=== PATIENT | male | born 1935 | race Caucasian/White ===

== ENCOUNTER 2020-01-08 13:48 | Inpatient (IN) | payer MEDICARE ==
[2020-01-08] MEDS ORDERED: Acetaminophen 500 MG TAB ONE ×2 (13:58)
[2020-01-08] MEDS ORDERED: Acetaminophen 650 MG Suppository ONE (14:16)
[2020-01-08 14:43] LABS: #Lymphocytes 0.5 thou/uL (1.20-3.40); #Monocytes 0.6 thou/uL (0.11-0.59); %Basophils 0.2 % (0.0-1.0); %Eosinophils 0.1 % (0.0-10.0); %Lymphocytes 4.1 % (21.0-51.0); %Monocytes 4.5 % (0.0-10.0); %Neutrophils 91.1 % (42.0-75.0); Hemoglobin 14.2 g/dL (14.0-18.0); Mean Corpuscular HGB CONC 33.2 g/dL (32.0-36.0); Mean Corpuscular Volume 90.6 fL (78.0-98.0); Mean Platelet Volume 7.9 fL (7.4-10.4); Platelet Count 272 thou/uL (130-400); RBC Distribution Width 12.6 % (11.5-14.5); Red Blood Cell (RBC) Count 4.72 mill/uL (4.70-6.10); White Blood Cell (WBC) Count 12.1 thou/uL (4.8-10.8)
[2020-01-08] MEDS ORDERED: cefTRIAXone\\ROCEPHIN 2 GM VIAL ONE (14:59)
[2020-01-08] MEDS ORDERED: Azithromycin 500 MG VIAL ONE (15:00)
[2020-01-08 15:05] LABS: ALT (SGPT) 11 U/L (8-55); AST (SGOT) 36 U/L (5-34); Albumin 3.8 g/dL (3.4-4.8); Alkaline Phosphatase 77 U/L (40-110); Anion Gap 18 mmol/L (10-20); BUN (Urea Nitrogen) 33 mg/dL (8.4-25.7); Bilirubin, Total 0.6 mg/dL (0.2-1.2); CK (CPK) 154 U/L (30-200); Calc. Creatinine Clearance 0 mL/min (70-130); Calcium 8.5 mg/dL (7.8-10.44); Carbon Dioxide 19 mmol/L (23-31); Chloride 100 mmol/L (98-107); Estimated GFR-MDRD 43; Globulin 2.8 g/dL (2.4-3.5); Glucose 86 mg/dL (83-110); Protein, Total 6.6 g/dL (5.8-8.1); Sodium 132 mmol/L (136-145)
--- NOTE | 2020-01-08 15:20 | RAD ---
PORTABLE CHEST: Date: 01/08/2020 INDICATION: Cough. COVID-positive. FINDINGS: Bilateral hazy lower lobe infiltrates are seen consistent with COVID pneumonia. No evidence of vascul ar congestion. Heart and mediastinum unremarkable. Postop sternotomy change. IMPRESSION: Hazy bilateral lower lung infiltrates. POS: OFF
[2020-01-08 15:30] LABS: CKMB 1.6 ng/mL (0-6.6)
[2020-01-08] MEDS ORDERED: Dexamethasone 4 mg/ml Vial ONE ×2 (15:46→15:48)
--- NOTE | 2020-01-08 16:02 | PDOC.FPRHP ---
- History of Present Illness Chief Complaint: fever History of Present Illness: 84-year-old male patient presents ER with complaint of shortness of breath, cough f,ever, body aches, chills for the past 2 weeks, with AMS for the past few days. The patient has a known diagnosis of COVID-19, diagnosed Dec 27, and was recently also diagnosed with pneumonia outpatient 3 days ago and started on azithromycin. The patient has been progressively worsening over the past few days. Patient has had 2 bouts of diarrhea, and his appetite has been decreased. He has not had any vomiting, diarrhea, chest pain, or abdominal pain. History was provided by patients daughter and mPOA. ED Course: IVF, tylenol, Rocephin/Azithromycin, decadron and aspirin given in ED - Allergies/Adverse Reactions Allergies Allergy/AdvReac Type Severity Reaction Status Date / Time codeine Allergy Verified 01/08/20 20:03 morphine Allergy Verified 01/08/20 23:13 Penicillins Allergy Verified 01/08/20 20:03 pregabalin [From Lyrica] Allergy Verified 01/08/20 23:12 Sulfa (Sulfonamide Allergy Verified 01/08/20 23:13 Antibiotics) - Home Medications Medication Instructions Recorded Confirmed Type Amlodipine [Norvasc] 2.5 mg PO HS 01/08/20 01/08/20 History Apixaban [Eliquis] 2.5 mg PO BID 01/08/20 01/08/20 History Ascorbic Acid [Vitamin C] 1,000 mg PO DAILY 01/08/20 01/08/20 History Atorvastatin Calcium 10 mg PO HS 01/08/20 01/08/20 History Benzonatate 200 mg PO TID 01/08/20 01/08/20 History Cholecalciferol (Vitamin D3) 2,000 unit PO DAILY 01/08/20 01/08/20 History [Vitamin D3] Cyanocobalamin/Folic Acid [Vitamin 2 tablet PO DAILY 01/08/20 01/08/20 History B12/Folic Acid] Famotidine [Pepcid] 40 mg PO BID 01/08/20 01/08/20 History Finasteride 5 mg PO HS 01/08/20 01/08/20 History Fluticasone/Salmeterol [Advair 1 inh IH BID 01/08/20 01/08/20 History Diskus 250/50] Loratadine/Pseudoephedrine 1 tab PO DAILY 01/08/20 01/08/20 History [Claritin-D 24 Hour] Tamsulosin HCl 0.4 mg PO DAILY 01/08/20 01/08/20 History Ubidecarenone/Vit E Acet [Co Q-10 1 each PO DAILY 01/08/20 01/08/20 History 100 mg Softgel] Vitamin E 400 unit PO DAILY 01/08/20 01/08/20 History Zinc 50 mg PO DAILY 01/08/20 01/08/20 History - History PMHx: Afib, Stroke (Dx earlier this year), HTN, CAD PSHx: L rotator cuff, L Knee, Double hernia, cataract surgery b/l, Quintuple Bypass Surgery, 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 denies: weight/appetite/sleep changes Eyes: denies: eye pain, vision changes ENT: denies: nasal congestion, rhinorrhea Respiratory: reports: cough, shortness of breath. denies: congestion Cardiovascular: denies: chest pain, palpitation, edema Gastrointestinal: denies: nausea, vomiting, diarrhea Genitourinary: denies: incontinence, dysuria Skin: denies: rashes, lesions Musculoskeletal: reports: arthritis/arthralgias. denies: stiffness Neurological: denies: numbness, seizure Psychological: denies: anxiety, depression - Vital signs Temp 102.9, BP: 125/58, Pulse: 84, Resp: 19, O2 sat: 96 on RA with desat in high 80s when coughing - Physical Exam Constitutional: NAD HEENT: normocephalic and atraumatic, PERRLA, other (dry mucous membranes) Neck: supple, FROM Heart: no murmurs/rubs/gallops, no edema -Heart: irregularly irregular -Lungs: diffuse crackles Musculoskeletal: normal structure, normal tone Neurological: no focal deficit, normal sensation Skin: no rash/lesions, good turgor Heme/Lymphatic: no unusual bruising or bleeding, no purpura -Psychiatric: AxO x 1-2, to person, and year; baseline is AxO x 3 per daughter FMR H&P: Results - Labs Result Diagrams: 01/09/20 04:58 01/09/20 04:58 Lab results: WBC 12.1 thou/uL (4.8-10.8) H 01/08/20 14:31 Hgb 14.2 g/dL (14.0-18.0) 01/08/20 14:31 Hct 42.8 % (42.0-52.0) 01/08/20 14:31 MCV 90.6 fL (78.0-98.0) 01/08/20 14:31 Plt Count 272 thou/uL (130-400) 01/08/20 14:31 Neutrophils % 91.1 % (42.0-75.0) H 01/08/20 14:31 Sodium 132 mmol/L (136-145) L 01/08/20 14:31 Potassium 5.0 mmol/L (3.5-5.1) 01/08/20 14:31 Chloride 100 mmol/L (98-107) 01/08/20 14:31 Carbon Dioxide 19 mmol/L (23-31) L 01/08/20 14:31 BUN 33 mg/dL (8.4-25.7) H 01/08/20 14:31 Creatinine 1.55 mg/dL (0.7-1.3) H 01/08/20 14:31 Glucose 86 mg/dL (83-110) 01/08/20 14:31 Lactic Acid 1.7 mmol/L (0.5-2.2) 01/08/20 14:31 Calcium 8.5 mg/dL (7.8-10.44) 01/08/20 14:31 Total Bilirubin 0.6 mg/dL (0.2-1.2) 01/08/20 14:31 AST 36 U/L (5-34) H 01/08/20 14:31 ALT 11 U/L (8-55) 01/08/20 14:31 Alkaline Phosphatase 77 U/L (40-110) 01/08/20 14:31 Creatine Kinase 154 U/L (30-200) 01/08/20 14:31 CK-MB (CK-2) 1.6 ng/mL (0-6.6) 01/08/20 14:31 Serum Total Protein 6.6 g/dL (5.8-8.1) 01/08/20 14:31 Albumin 3.8 g/dL (3.4-4.8) 01/08/20 14:31 - Radiology Interpretation Chest x-ray Status: report reviewed by me (CXR: Bilateral lower lobe infiltrates consistent with covid PNA) FMR H&P: A/P - Plan Acute Hypoxic Respiratory Failure 2/2 Covid PNA Dx Covid December 27 per daughter CXR: CXR: bilateral hazy lower lobe infiltrates are seen consistent with covid pneumonia Currently 97 on RA, however with coughing drops to high 80s - Will start on 2L O2 NC due to suspected silent hypoxemia - Routine Covid labs - does not qualify for remdesivir - convalescent plasma ordered - continue decadron - procal ordered, will hold Abx pending results, s/p Rocephin/Azithromycinin ED- unlikely superimposed bacterial infection - continuous O2 monitoring NSTEMI, suspected type II Ekg with RBBB, no ST changes - will trend troponins - tele monitoring SINDI, suspected, likely 2/2 dehydration Cr. 1.55 - unknown baseline - will give 1L @ 150ml/hr overnight, for 1 bag - recheck in am HTN - resume home medications BPH - continue home medications Hx Afib NSR on EKG - resume home eliquis Hx Stroke - as above Hx CAD s/p 5 vessel bypass in 2013 - resume atorvastatin Code status: DNI-DNR per daughter (mPOA) and PCP: OOT Dispo: admit tele obs FMR H&P: Upper Level - Plan Date/Time: 01/08/20 1600 ISebastien DO, have evaluated this patient and agree with findings/plan as outlined by regulatory affairs internship resident. Pertinent changes/additions are listed here. 84 yo M w pmhx sig for CAD presents with AMS for 2days, cough/fever for 2 weeks dx with covid on 12/27, has had cough and fever since then, AOx2 on my exam which is different from his baseline of x4. Daughter contacted for further information. she reports for the past few days he has been coughing and more altered. no reported SOB. In the ED he tested + for covid, wbc elevation, trop indeterminate, Cr elevated, cxr sig for LL patchy infiltrates b/l, ekg with R BBB, no ST changes. dex, rocephin, azithro and 1L NS, asa given. VSS, apparently drops O2% into hi 80s when coughing. on exam diffuse crackles, irregularly irregular rhythm, abd nttp, no TOSHIA, dry appearing. AHRF 2/2 COVID pna >10days of illness, will cont dex, home elquis, give convalescent plasma, routine covid labs, supplemental O2 as silent hypoxemia could be contributing to pt AMS. does not qualify for remdesivir. unlikely superimposed bacterial infection, will hold off on abx for now. NSTEMI type II, EKG changes likely chronic, will trend trop and repeat EKG for chest pain. SINDI likely 2/2 hypovolemia, will IVF rescus and monitor. daughter contacted and made aware of patients status, she reports he wishes to be DNR-DNI. admit to tele inpt for ELOS>48hrs. Addendum - Attending - Attending Attestation Date/Time: 01/08/20 [id number] I personally evaluated the patient and discussed the management with Dr. Guerrero I agree with the History, Examination, Assessment and Plan documented above with any addition or exceptions noted below- 84-year-old male patient presents ER with complaint of shortness of breath, cough f,ever, body aches, chills for the past 2 weeks, with AMS for the past few days. The patient has a known diagnosis of COVID-19, diagnosed Dec 27, and was recently also diagnosed with pneumonia outpatient 3 days ago and started on azithromycin. The patient has been progressively worsening over the past few days. Patient has had 2 bouts of diarrhea, and his appetite has been decreased. He has not had any vomiting, diarrhea, chest pain, or abdominal pain. T102.9 VSS Exam repeated by me and agree with resident's findings. A/P: 1) AMS- multifactorial including COVID pneumonia, UTI and dehydration- improved after fluid bolus. 2) COVID pneumonia- will check baseline labs; outside of window for remdesivir but can consider co nvalescent plasma. 3) UTI- received abx in ER; blood and urine cultures collected. Continue abx.
[2020-01-08] MEDS ORDERED: Acetaminophen 650 MG Suppository PR PRN (16:45)
[2020-01-08] MEDS ORDERED: Lactated Ringer's 1,000 ML IV SCH (17:00)
[2020-01-08 17:58] LABS: INR-International Normal Ratio 1.5; PTT 48.1 sec (22.9-36.1); Prothrombin Time 18.3 sec (12.0-14.7)
[2020-01-08 18:12] LABS: Troponin I 0.058 ng/mL (< 0.028)
[2020-01-08 18:24] VITALS: BMI 22.1
[2020-01-08] MEDS: Dexamethasone 4 mg/ml Vial SLOW IVP SCH (20:42)
[2020-01-08] MEDS: Benzonatate 100 MG CAP PO SCH (20:42)
[2020-01-08] MEDS: Apixaban 2.5 MG TAB PO SCH (20:42)
[2020-01-08 20:56] LABS: Bacteria/HPF 4+ HPF (None Seen); Bilirubin Negative (Negative); Blood, Urine Negative (Negative); Clarity Turbid (Clear); Glucose, Urine (Dipstick) Normal (Negative); Ketone, Urine Trace mg/dL (Negative); Leukocyte 25 Leu/uL (Negative); Nitrite 2+ (Negative); Protein, Urine (Dipstick) 30 mg/dL (Neg-Trace); RBC/HPF 0-3 HPF (0-3); Specific Gravity, Urine 1.021 (1.002-1.036); Squamous Epithelial 0-3 HPF (0-3); Urobilinogen Normal mg/dL (Less than 2)
[2020-01-08 21:18] LABS: Troponin I 0.048 ng/mL (< 0.028)
[2020-01-09 05:20] LABS: #Lymphocytes 0.6 thou/uL (1.20-3.40); #Monocytes 0.2 thou/uL (0.11-0.59); #Neutrophils 7.4 thou/uL (1.40-6.50); %Basophils 0.3 % (0.0-1.0); %Eosinophils 0.2 % (0.0-10.0); %Lymphocytes 7.6 % (21.0-51.0); %Monocytes 2.7 % (0.0-10.0); %Neutrophils 89.1 % (42.0-75.0); Hemoglobin 13.2 g/dL (14.0-18.0); Mean Corpuscular HGB CONC 32.8 g/dL (32.0-36.0); Mean Corpuscular Volume 91.6 fL (78.0-98.0); Platelet Count 267 thou/uL (130-400); RBC Distribution Width 12.5 % (11.5-14.5); Red Blood Cell (RBC) Count 4.41 mill/uL (4.70-6.10); White Blood Cell (WBC) Count 8.3 thou/uL (4.8-10.8)
[2020-01-09 05:45] LABS: Anion Gap 16 mmol/L (10-20); BUN (Urea Nitrogen) 32 mg/dL (8.4-25.7); CRP (Inflammatory) 17.22 mg/dL (= or < 0.5); Calc. Creatinine Clearance 43 mL/min (70-130); Calcium 8.5 mg/dL (7.8-10.44); Carbon Dioxide 20 mmol/L (23-31); Chloride 105 mmol/L (98-107); Estimated GFR-MDRD 63; Glucose 137 mg/dL (83-110); Magnesium 2.1 mg/dL (1.6-2.6); Phosphorus 4.4 mg/dL (2.3-4.7); Potassium 4.5 mmol/L (3.5-5.1); Sodium 136 mmol/L (136-145)
--- NOTE | 2020-01-09 07:08 | PDOC.FM ---
- Subjective Subjective: Patient AxO x3 this AM. Says he doesn't know why he came here because he "wasn't supposed to" but that his daughter was in charge. Denies having pain anywhere. Attempted bedside swallow with patient with water, and he immediately coughed. - Objective MAR Reviewed: Yes Vital Signs & Weight: Vital Signs (12 hours) Temp Pulse Resp BP Pulse Ox 01/09/20 03:46 96.4 F L 63 16 123/77 96 01/09/20 00:00 98.4 F 63 15 117/61 97 01/08/20 20:42 96 01/08/20 19:35 99.1 F 68 16 115/59 L 96 Weight Weight 60.282 kg I&O: 01/08/20 01/09/20 01/10/20 06:59 06:59 06:59 Intake Total 120 Balance 120 Result Diagrams: 01/09/20 04:58 01/09/20 04:58 Phys Exam - Physical Examination Constitutional: NAD Respiratory: no wheezing diminished lung sounds bilaterally Cardiovascular: RRR, no significant murmur Gastrointestinal: soft, non-tender, no distention Musculoskeletal: no edema, pulses present Neurological: non-focal, moves all 4 limbs bilateral hand tremors more with movement than at rest, present at rest Psychiatric: normal affect, A&O x 3 Dx/Plan - Plan Plan: 84 yo M admitted for altered mental status, SINDI and Covid PNA: Acute Hypoxic Respiratory Failure 2/2 Covid PNA Suspected bacterial infection, pneumonia vs UTI - Dx Covid December 27 per daughter - on 2L O2 NC due to suspected silent hypoxemia. We have not ordered an ABG. Patient's mental status has improved w/ the O2 and fluids. - Routine Covid labs - does not qualify for remdesivir - convalescent plasma ordered - continue decadron - procalcitonin mildly elevated: started ceftriaxone/azithromycin. These were also given in ED. Dysphagia - unclear if patient unable to swallow due to mechanical issue or due to Covid cough - Speech consulted. Awaiting eval. He is NPO. Pt also has severe bilateral upper extremity tremors, so concern for neurologic dysphagia exists. NSTEMI, suspected type 2 - troponin stable, no acute EKG changes SINDI, likely 2/2 dehydration - improved s/p 1 L of fluids Stage 1 sacral ulcer - monitor. Consult wound care today. Unlikely to be source of bacterial infection. HTN BPH Hx Afib Hx Stroke Hx CAD s/p 5 vessel bypass in 2014 - resume home medications - on eliquis - currently in NSR Code status: DNI-DNR per daughter (mPOA) and VTE ppx: home eliquis GI ppx: none PCP: OOT Dispo: telemetry, obs. Will call daughter this AM to discuss patient, home si tuation, and possible d/c home. Probably will need to consult case management. Addendum - Attending - Attending Attestation Date/Time: 01/09/20 1320 I personally evaluated the patient and discussed the management with Dr. Abarca. I agree with the History, Examination, Assessment and Plan documented above with any addition or exceptions noted below. Doing well. No inc wob or resp distress. Dispo pending eval.
[2020-01-09] MEDS: Mometasone 200 MCG/Formoterol 5 MCG 120 PUFF INHALER INH SCH ×2 (09:02→18:10)
[2020-01-09] MEDS: Tamsulosin HCl 0.4 MG CAP PO SCH (09:54)
[2020-01-09] MEDS: Cholecalciferol 1,000 UNITS (25 MCG) TAB PO SCH (09:54)
[2020-01-09] MEDS: Vitamin E 400 UNITS CAP PO SCH (09:54)
[2020-01-09] MEDS: Amlodipine 5 MG TAB PO SCH (09:55)
[2020-01-09] MEDS: Apixaban 2.5 MG TAB PO SCH ×2 (09:55→21:26)
[2020-01-09] MEDS: Loratadine/Pseudoephedrine 10/240 mg Tablet PO SCH (09:55)
[2020-01-09] MEDS: Famotidine 20 MG TAB PO SCH (09:55)
[2020-01-09] MEDS: Finasteride 5 MG TAB PO SCH (09:55)
[2020-01-09] MEDS: Benzonatate 100 MG CAP PO SCH ×3 (09:55→21:25)
[2020-01-09] MEDS: Cyanocobalamin (Vitamin B-12) 1,000 MCG TAB PO SCH (09:55)
[2020-01-09] MEDS: Ascorbic Acid 500 mg Chewable Tablet PO SCH (09:55)
[2020-01-09] MEDS: Atorvastatin Calcium 10 MG TAB PO SCH (09:55)
[2020-01-09] MEDS: Ubidecarenone 50 MG CAP PO SCH (09:55)
[2020-01-09] MEDS: Dexamethasone 4 mg/ml Vial SLOW IVP SCH ×2 (09:56→21:27)
[2020-01-09] MEDS: Folic Acid 1 MG TAB PO SCH (09:56)
[2020-01-09] MEDS: Zinc Sulfate 220 MG CAP PO SCH (09:56)
[2020-01-09] MEDS: Azithromycin 250 MG TAB PO SCH (15:08)
[2020-01-09] MEDS ORDERED: cefTRIAXone\\ROCEPHIN 2 GM in Sodium Chloride 0.9% 100 ML IVPB SCH (16:00)
--- NOTE | 2020-01-10 06:09 | PDOC.FM ---
- Subjective Subjective: NAEON. Patient feels well. Denies cough. Overnight telemetry stable sinus rhythm - Objective MAR Reviewed: Yes Vital Signs & Weight: Vital Signs (12 hours) Temp Pulse Resp BP Pulse Ox 01/10/20 03:21 97.3 F L 70 16 117/64 92 L 01/10/20 03:08 92 L 01/09/20 23:42 97.7 F 71 18 125/60 92 L 01/09/20 21:40 71 L 01/09/20 19:57 98.2 F 70 18 112/61 92 L Weight Admit Weight 60.282 kg Weight 60.282 kg I&O: 01/08/20 01/09/20 01/10/20 06:59 06:59 06:59 Intake Total 120 820 Balance 120 820 Result Diagrams: 01/09/20 04:58 01/09/20 04:58 Phys Exam - Physical Examination Constitutional: NAD Respiratory: no wheezing, clear to auscultation bilateral Cardiovascular: RRR, no significant murmur Gastrointestinal: soft, non-tender, no distention Psychiatric: normal affect, A&O x 3 Dx/Plan - Plan Plan: 84 yo M admitted for altered mental status, SINDI and Covid PNA: Acute Hypoxic Respiratory Failure 2/2 Covid PNA Suspected bacterial infection, pneumonia vs UTI - Dx Covid December 27 per daughter - on 2L O2 NC due to suspected silent hypoxemia. - Routine Covid labs - convalescent plasma ordered, waiting to be given because we need the positive Covid result from his doctor's office here on file before transfusion. Discussed r/b/a of transfusion w/ MPOA and she agrees to transfusion. - continue decadron - continue ceftriaxone/azithromycin. Dysphagia - Speech consulted. Given ground up diet and thickened liquids. UTI - likely covered by ceftriaxone - waiting urine culture Stage 1 sacral ulcer - monitor. Consult wound care today. Unlikely to be source of bacterial infection. HTN BPH Hx Afib Hx Stroke Hx CAD s/p 5 vessel bypass in 2013 - resume home medications - on eliquis - currently in NSR Code status: DNI-DNR per daughter (mPOA) and VTE ppx: home eliquis GI ppx: none PCP: OOT Dispo: telemetry, obs. PT recs home health. OT recs Rehab vs. SNU, likely due to patient's severe UE tremor. CM consulted for Home Health and Home O2. Addendum - Attending - Attending Attestation Date/Time: 01/10/20 3264 I personally evaluated the patient and discussed the management with Dr. Abarca. I agree with the History, Examination, Assessment and Plan documented above with any addition or exceptions noted below. No cp/sob No f/c He continues to look well. Plan for dc pending UCx.
[2020-01-10] MEDS: Mometasone 200 MCG/Formoterol 5 MCG 120 PUFF INHALER INH SCH ×2 (08:45→17:54)
[2020-01-10] MEDS: Ascorbic Acid 500 mg Chewable Tablet PO SCH (08:46)
[2020-01-10] MEDS: Loratadine/Pseudoephedrine 10/240 mg Tablet PO SCH (08:47)
[2020-01-10] MEDS: Famotidine 20 MG TAB PO SCH (08:47)
[2020-01-10] MEDS: Dexamethasone 4 mg/ml Vial SLOW IVP SCH ×2 (08:47→20:23)
[2020-01-10] MEDS: Zinc Sulfate 220 MG CAP PO SCH (08:47)
[2020-01-10] MEDS: Cholecalciferol 1,000 UNITS (25 MCG) TAB PO SCH (08:47)
[2020-01-10] MEDS: Atorvastatin Calcium 10 MG TAB PO SCH (08:48)
[2020-01-10] MEDS: Amlodipine 5 MG TAB PO SCH (08:48)
[2020-01-10] MEDS: Benzonatate 100 MG CAP PO SCH ×3 (08:48→20:25)
[2020-01-10] MEDS: Apixaban 2.5 MG TAB PO SCH ×2 (08:49→20:25)
[2020-01-10] MEDS: Vitamin E 400 UNITS CAP PO SCH (08:49)
[2020-01-10] MEDS: Tamsulosin HCl 0.4 MG CAP PO SCH (08:49)
[2020-01-10] MEDS: Folic Acid 1 MG TAB PO SCH (08:49)
[2020-01-10] MEDS: Ubidecarenone 50 MG CAP PO SCH (08:49)
[2020-01-10] MEDS: Cyanocobalamin (Vitamin B-12) 1,000 MCG TAB PO SCH (08:49)
[2020-01-10] MEDS: Finasteride 5 MG TAB PO SCH (08:49)
[2020-01-10] MEDS: Azithromycin 250 MG TAB PO SCH (14:45)
[2020-01-10] MEDS ORDERED: cefTRIAXone\\ROCEPHIN 1 GM in Sodium Chloride 0.9% 100 ML IVPB SCH (16:00)
[2020-01-11] MEDS: Mometasone 200 MCG/Formoterol 5 MCG 120 PUFF INHALER INH SCH ×2 (06:20→18:30)
--- NOTE | 2020-01-11 07:02 | PDOC.FM ---
- Subjective Subjective: Patient's respiratory status is improved. Per PT, desats to 86% with activity. Patient would like to go home. He was able to drink water at bedside this AM without coughing. - Objective MAR Reviewed: Yes Vital Signs & Weight: Vital Signs (12 hours) Temp Pulse Resp BP Pulse Ox 01/11/20 02:43 97.6 F 63 13 132/68 96 01/11/20 00:00 67 16 96 01/10/20 20:28 97.9 F 67 15 125/65 100 01/10/20 20:00 100 Weight Admit Weight 60.282 kg Weight 60.282 kg I&O: 01/10/20 01/11/20 01/12/20 06:59 06:59 06:59 Intake Total 820 1060 Output Total 1600 Balance 820 -540 Result Diagrams: 01/09/20 04:58 01/09/20 04:58 Phys Exam - Physical Examination Constitutional: NAD Respiratory: no wheezing, clear to auscultation bilateral Cardiovascular: RRR (SR overnight per telemetry) Gastrointestinal: soft, non-tender Psychiatric: normal affect, A&O x 3 Dx/Plan - Plan Plan: 84 yo M admitted for altered mental status, SINDI and Covid PNA: Acute Hypoxic Respiratory Failure 2/2 Covid PNA, improved Bacterial infection, suspected pneumonia - Dx Covid December 27 per daughter - on RA - convalescent plasma ordered, waiting to be given because we need the positive Covid result from his doctor's office here on file before transfusion. Discussed r/b/a of transfusion w/ MPOA and she agrees to transfusion. - continue decadron - continue ceftriaxone/azithromycin for 7 day course Dysphagia - Speech consulted. Given ground up diet and thickened liquids. - Pt improved based on my observation this morning, advanced diet textures as tolerated. E. Coli UTI - UCx: resistant to augmentin and bactrim. - he has received 3 doses/3 days of IV ceftriaxone. If UTI was the cause of altered mental status, we should give him ciprofloxacin as well for 7 days. Stage 1 sacral ulcer - monitor. Wound care consulted. HTN BPH Hx Afib Hx Stroke Hx CAD s/p 5 vessel bypass in 2013 - resume home medications - on eliquis - currently in NSR Code status: DNI-DNR per daughter (mPOA) and VTE ppx: home eliquis GI ppx: none PCP: OOT Dispo: telemetry, obs. PT recs home health. CM consulted for Home Health and Home O2. Patient will also need provider care for help with baths per MPOA and also may need speech therapy to advance his diet if unable to advance here. Patient is medically stable for discharge. Addendum - Attending - Attending Attestation Date/Time: 01/11/20 7000 I personally evaluated the patient and discussed the management with Dr. Abarca. I agree with the History, Examination, Assessment and Plan documented above with any addition or exceptions noted below. ROS: denies cp/sob. Denies f/c. Denies n/v. Attempt to dc today. Taper decadron. Transition to PO antibiotic.
[2020-01-11] MEDS: Finasteride 5 MG TAB PO SCH (08:20)
[2020-01-11] MEDS: Cholecalciferol 1,000 UNITS (25 MCG) TAB PO SCH (08:20)
[2020-01-11] MEDS: Dexamethasone 4 mg/ml Vial SLOW IVP SCH ×2 (08:20→19:54)
[2020-01-11] MEDS: Zinc Sulfate 220 MG CAP PO SCH (08:21)
[2020-01-11] MEDS: Ascorbic Acid 500 mg Chewable Tablet PO SCH (08:21)
[2020-01-11] MEDS: Atorvastatin Calcium 10 MG TAB PO SCH (08:21)
[2020-01-11] MEDS: Amlodipine 5 MG TAB PO SCH (08:21)
[2020-01-11] MEDS: Tamsulosin HCl 0.4 MG CAP PO SCH (08:21)
[2020-01-11] MEDS: Benzonatate 100 MG CAP PO SCH ×3 (08:21→22:13)
[2020-01-11] MEDS: Famotidine 20 MG TAB PO SCH (08:21)
[2020-01-11] MEDS: Ubidecarenone 50 MG CAP PO SCH (08:21)
[2020-01-11] MEDS: Cyanocobalamin (Vitamin B-12) 1,000 MCG TAB PO SCH (08:21)
[2020-01-11] MEDS: Vitamin E 400 UNITS CAP PO SCH (08:21)
[2020-01-11] MEDS: Loratadine/Pseudoephedrine 10/240 mg Tablet PO SCH (08:22)
[2020-01-11] MEDS: Folic Acid 1 MG TAB PO SCH (08:22)
[2020-01-11] MEDS: Apixaban 2.5 MG TAB PO SCH ×2 (08:22→19:54)
[2020-01-11] MEDS ORDERED: Ciprofloxacin 500 MG TAB PO SCH (09:00)
[2020-01-11] MEDS: Azithromycin 250 MG TAB PO SCH (16:10)
[2020-01-11] MEDS: Ciprofloxacin 500 MG TAB PO SCH (19:54)
[2020-01-12 05:41] LABS: Hemoglobin 14.7 g/dL (14.0-18.0); Platelet Count 309 thou/uL (130-400)
[2020-01-12] MEDS: Mometasone 200 MCG/Formoterol 5 MCG 120 PUFF INHALER INH SCH (06:01)
[2020-01-12] MEDS: Ciprofloxacin 500 MG TAB PO SCH (06:01)
--- NOTE | 2020-01-12 07:31 | PDOC.FM ---
- Subjective Subjective: Patient says he is cold this AM. Otherwise, he feels fine. Denies pain or trouble breathing. Speech therapy and outpatient services acquired per note. - Objective MAR Reviewed: Yes Vital Signs & Weight: Vital Signs (12 hours) Temp Pulse Resp BP Pulse Ox 01/12/20 04:33 97.6 F 75 15 139/63 98 01/12/20 02:56 97 01/11/20 20:03 97.5 F L 63 16 136/70 97 01/11/20 20:00 97 Weight Admit Weight 60.282 kg Weight 60.282 kg I&O: 01/11/20 01/12/20 01/13/20 06:59 06:59 06:59 Intake Total 1060 120 Output Total 1600 450 Balance -540 -330 Result Diagrams: 01/12/20 05:33 01/12/20 05:32 Phys Exam - Physical Examination Constitutional: NAD Respiratory: no wheezing, clear to auscultation bilateral Cardiovascular: RRR, no significant murmur (overnight tele NSR) Gastrointestinal: soft, no distention Psychiatric: normal affect, A&O x 3 Dx/Plan - Plan Plan: 84 yo M admitted for altered mental status, SINDI and Covid PNA: Acute Hypoxic Respiratory Failure 2/2 Covid PNA, improved Bacterial infection, suspected pneumonia - Dx Covid December 27 per daughter - anticoagulated by home med - continue decadron PO for 10 days - continue ceftriaxone/azithromycin for 7 day course Dysphagia - Speech consulted. changed to pureed. - continue outpatient/home speech E. Coli UTI - continue cipro Stage 1 sacral ulcer - monitor. Wound care consulted. HTN BPH Hx Afib Hx Stroke Hx CAD s/p 5 vessel bypass in 2013 - resume home medications - on eliquis - currently in NSR Code status: DNI-DNR per daughter (mPOA) and VTE ppx: home eliquis GI ppx: none PCP: OOT Dispo: telemetry, d/c today. Home services set up. Addendum - Attending - Attending Attestation Date/Time: 01/12/20 1009 I personally evaluated the patient and discussed the management with Dr. Abarca. I agree with the History, Examination, Assessment and Plan documented above with any addition or exceptions noted below. Home today.
[2020-01-12] MEDS ORDERED: Dexamethasone 4 MG TAB PO SCH (08:00)
[2020-01-12] MEDS: Famotidine 20 MG TAB PO SCH (09:11)
[2020-01-12] MEDS: Ubidecarenone 50 MG CAP PO SCH (09:11)
[2020-01-12] MEDS: Apixaban 2.5 MG TAB PO SCH (09:11)
[2020-01-12] MEDS: Loratadine/Pseudoephedrine 10/240 mg Tablet PO SCH (09:11)
[2020-01-12] MEDS: Cholecalciferol 1,000 UNITS (25 MCG) TAB PO SCH (09:11)
[2020-01-12] MEDS: Folic Acid 1 MG TAB PO SCH (09:12)
[2020-01-12] MEDS: Vitamin E 400 UNITS CAP PO SCH (09:12)
[2020-01-12] MEDS: Atorvastatin Calcium 10 MG TAB PO SCH (09:12)
[2020-01-12] MEDS: Finasteride 5 MG TAB PO SCH (09:12)
[2020-01-12] MEDS: Benzonatate 100 MG CAP PO SCH (09:12)
[2020-01-12] MEDS: Ascorbic Acid 500 mg Chewable Tablet PO SCH (09:12)
[2020-01-12] MEDS: Amlodipine 5 MG TAB PO SCH (09:12)
[2020-01-12] MEDS: Zinc Sulfate 220 MG CAP PO SCH (09:12)
[2020-01-12] MEDS: Tamsulosin HCl 0.4 MG CAP PO SCH (09:12)
[2020-01-12] MEDS: Cyanocobalamin (Vitamin B-12) 1,000 MCG TAB PO SCH (09:13)
[2020-01-12 11:57] VITALS: TEMP 97.7
--- NOTE | 2020-01-12 14:16 | PQF ---
CLINICAL DOCUMENTATION CLARIFICATION FORM: Dear Dr. Abarca/ Attending Dr. Suarez Date / Time: 01/12/2020 Please exercise your independent, professional judgment in responding to the clarification form. Clinical indicators are provided on the bottom of this form for your review. Please check appropriate box(es): [X] Sepsis due to: E Coli UTI [ ] Severe sepsis with associated acute organ dysfunction: [ ] Acute Respiratory Failure [ ] Acute Kidney injury w/o ATN [ ] Additional/Other: please specify: [ ] Localized infection without sepsis [ ] Other diagnosis [ ] Unable to determine In addition, please specify: Present on Admission (POA): [X] Yes [ ] No [ ] Unable to determine For continuity of documentation, please document condition throughout progress notes and discharge summary. Thank You. To be completed by CDI/Coding staff for physician review: CLINICAL INDICATORS - SIGNS / SYMPTOMS / LABS / RESULTS AND LOCATION IN MR *ER Record 01/07: VS: BP 115/90, pulse 91, resp. 26, Temp. 102.8 Doctor Notes: Pt presented to the ED with COVID 19 pneumonia, hypoxia and altered mental status. *H&P 01/07 (Guerrero) Lab WBC 12.1 A/P: Acute Hypoxic Respiratory Failure 2/2 Covid PNA NSTEMI suspected type II SINDI, suspected, likely 2/2 dehydration *01/08 pn (Tevin) Plan: Suspected bacterial infection, pneumonia vs UTI *01/11 pn(Tevin)Plan: Bacterial infection suspected pneumonia E. Coli UTI RISK FACTORS / RESULTS AND LOCATION IN MR *H&P 01/07 (Guerrero) HPI: Known diagnosis COVID-19 dx , recently diagnosed with pneumonia 3 days ago. PMH: Afib, Stroke, HRN, CAD. *01/11 pn (Tevin) E Coli UTI TREATMENTS / RESULTS AND LOCATION IN MR *Order 01/09-01/10 IV Rocephin *MAR: Order 01/08: Zithromax 250mg po 1600 *MAR: Order 01/10: Cipro 500mg po UTI Thank you, Shanika Funes RN, [email or web address] Cell This is a permanent part of the Medical Record [facility]
[2020-01-12 16:03] VITALS: BP 134/71
--- NOTE | 2020-01-13 15:06 | EKG ---
Test Reason : Blood Pressure : / mmHG Vent. Rate : 088 BPM Atrial Rate : 088 BPM P-R Int : 168 ms QRS Dur : 132 ms QT Int : 380 ms P-R-T Axes : 055 022 001 degrees QTc Int : 459 ms Normal sinus rhythm Right bundle branch block Abnormal ECG Confirmed by JASON BERRIOS M.D. ([id number]), assistant editor SAMMIE ALEXANDER ([id number]) on 01/13/2020 3:05:45 PM Referred By: Confirmed By:JASON BERRIOS M.D.
== END 2020-01-12 15:40 | disposition home health service (06) | DRG 871 ==
LOC: ERS 13:48 → OBSVTOIN 16:13 → 2SW 16:13
PROVIDERS: ADMIT Emergency Medicine; ATTEND Emergency Medicine
DX: A41.51 Sepsis due to Escherichia coli [E. coli] (principal); U07.1 COVID-19; J12.89 Other viral pneumonia; J96.01 Acute respiratory failure with hypoxia; I21.A1 Myocardial infarction type 2; N17.9 Acute kidney failure, unspecified; N39.0 Urinary tract infection, site not specified; Z66 Do not resuscitate; I48.91 Unspecified atrial fibrillation; R77.8 Other specified abnormalities of plasma proteins; I25.10 Atherosclerotic heart disease of native coronary artery without angina pectoris; I10 Essential (primary) hypertension; E86.0 Dehydration; N40.0 Benign prostatic hyperplasia without lower urinary tract symptoms; E86.1 Hypovolemia; Z86.73 Personal history of transient ischemic attack (TIA), and cerebral infarction without residual deficits; Z98.890 Other specified postprocedural states; Z88.0 Allergy status to penicillin; Z88.2 Allergy status to sulfonamides; Z88.6 Allergy status to analgesic agent; Z79.899 Other long term (current) drug therapy; Z79.01 Long term (current) use of anticoagulants; Z79.2 Long term (current) use of antibiotics; Z98.42 Cataract extraction status, left eye; Z98.41 Cataract extraction status, right eye; Z88.8 Allergy status to other drugs, medicaments and biological substances; R13.10 Dysphagia, unspecified; L89.151 Pressure ulcer of sacral region, stage 1; Z95.1 Presence of aortocoronary bypass graft; B96.20 Unspecified Escherichia coli [E. coli] as the cause of diseases classified elsewhere
CPT/HCPCS: 36415; 51701; 71045; 80048; 80053; 81003; 81015; 82550; 82553; 82565; 82728; 83605; 83615; 83735; 84100; 84145; 84484; 85014; 85018; 85025; 85049; 85379; 85384; 85610; 85730; 86140; 86850; 86900; 86901; 87040; 87077; 87086; 87186; 93005; 96365; 96367; 96375; J0456; J0696; J1100; J3490; J8540